=== PATIENT | male | born 1990 | race Hispanic/Latino ===

== ENCOUNTER 2017-11-17 14:37 | Observation (INO) | payer OTHER ==
[~2017-11-17] VITALS: Ht 175.3 cm; Wt 108.5 kg
[2017-11-17] MEDS ORDERED: ONDANSETRON HCL INJ 2 MG/ML VIAL IV STA (14:42)
[2017-11-17] MEDS ORDERED: MORPHINE SULFATE 4 MG/ML SYR IV STA (14:42)
[2017-11-17] MEDS ORDERED: SODIUM CHLORIDE 0.9% 1000ML 1,000 ML IV STA (14:42)
[2017-11-17 15:04] LABS: BASOPHILS # (AUTO) 0.1 (0.0-0.1); BASOPHILS % 0.4 % (0.0-1.0); EOSINOPHILS # (AUTO) 0.1 (0.0-0.4); EOSINOPHILS % 0.5 % (0.0-6.0); HEMOGLOBIN 14.2 g/dL (14.0-18.0); LYMPHOCYTES # (AUTO) 2.4 (1.0-3.2); MEAN CORPUSCULAR VOLUME 84.8 fL (81-99); MONOCYTES # (AUTO) 0.7 (0.2-0.8); MONOCYTES % 5.4 % (4.4-11.3); NEUTROPHILS % 75.4 % (38.7-80.0); PLATELET COUNT 300 x10e3/uL (140-360); RED BLOOD COUNT 5.07 x10e6/uL (4.3-5.7); RED CELL DISTRIBUTION WIDTH 13.1 % (11.7-14.4)
[2017-11-17 15:05] LABS: BILIRUBIN,URINE NEGATIVE (NEGATIVE); CLARITY,URINE CLEAR (CLEAR); COLOR,URINE YELLOW (YELLOW); KETONES,URINE NEGATIVE (NEGATIVE); LEUKOCYTE ESTERASE ,URINE TRACE (NEGATIVE); NITRITE,URINE NEGATIVE (NEGATIVE); PROTEIN,URINE DIPSTICK NEGATIVE (NEGATIVE); URINE UROBILINOGEN 0.2 mg/dL (0.2 - 1)
[2017-11-17 15:11] LABS: BACTERIA,URINE RARE /HPF; MUCUS,URINE FEW (RARE); RBC,URINE 0-5 /HPF (0-5)
[2017-11-17 15:26] LABS: ALANINE AMINOTRANSFERASE 20 IU/L (0-55); ALBUMIN 4.5 g/dL (3.5-5.0); ALKALINE PHOSPHATASE 83 IU/L (40-150); ANION GAP 12.7 mmol/L (8-16); BLOOD UREA NITROGEN 13 mg/dL (7-26); BUN/CREATININE RATIO 11 (6-25); CALCIUM 9.8 mg/dL (8.4-10.2); CARBON DIOXIDE 27 mmol/L (22-29); CHLORIDE 102 mmol/L (98-107); CREATININE, SERUM 1.19 mg/dL (0.72-1.25); EST GLOMERULAR FILTRATION RATE > 60 ML/MIN (60-); GLUCOSE 94 mg/dL (74-118); LIPASE 31 U/L (8-78); POTASSIUM 3.7 mmol/L (3.5-5.1); SODIUM 138 mmol/L (136-145)
[2017-11-17] MEDS ORDERED: MORPHINE SULFATE 2 MG/ML SYR ONE (16:20)
[2017-11-17] MEDS ORDERED: PIPER-TAZ 3.375 GM 50 ML IV ONE (16:45)
--- NOTE | 2017-11-17 16:50 | Diagnostic Imaging Report ---
PROCEDURE: CT ABDOMEN AND PELVIS WITH CONTRAST TECHNIQUE: The abdomen and pelvis were scanned utilizing a multidetector helical scanner from the diaphragm to the lesser trochanter after the IV administration of 100 cc of Isovue 370 and the oral administration of water. Coronal and sagittal multiplanar reformations were obtained. COMPARISON: None. INDICATIONS: APPENDICITIS FINDINGS: LOWER THORAX: Unremarkable HEPATOBILIARY: No focal hepatic lesions. No biliary ductal dilatation. Gallbladder is unremarkable. SPLEEN: No splenomegaly. PANCREAS: No focal masses or ductal dilatation. ADRENALS: No adrenal nodules. KIDNEYS/URETERS: No hydronephrosis, stones, or solid mass lesions. PELVIC ORGANS/BLADDER: The bladder and prostate are unremarkable. PERITONEUM / RETROPERITONEUM: No free air or fluid. LYMPH NODES: No lymphadenopathy. VESSELS: Unremarkable. GI TRACT: The appendix is dilated, measuring approximately 1.1 cm in caliber and shows marked wall enhancement. Minimal surrounding periappendiceal stranding. No foci of extraluminal air or well defined enhancing fluid collections. The rest of the bowel is unremarkable. No dilation or obstruction. BONES AND SOFT TISSUES: Unremarkable. IMPRESSION: 1. findings consistent with acute appendicitis, in the appropriate clinical setting. No perforation or abscess formation. 2. Findings discussed with Ceasar Barr in the ER November 17, 2017 at 1640 hrs. Mayo Small M.D. Dictated by: Mayo Small M.D. on 11/17/2017 at 16:50 Electronically approved by: Mayo Small M.D. on 11/17/2017 at 16:50
[2017-11-17] MEDS ORDERED: MORPHINE SULFATE 2 MG/ML SYR IV PRN (17:00)
[2017-11-17] MEDS ORDERED: ONDANSETRON HCL INJ 2 MG/ML VIAL IV PRN (17:00)
--- OUTSIDE RECORDS SUMMARY | 2017-11-17 17:51 | XMS REPORT ---
[facility] Address Unknown Phone Unavailable Care Team Providers Care Drag Out Man Name Role Phone CHEY JACOBS Unavailable Unavailable Problems This patient has no known problems. Allergies, Adverse Reactions, Alerts This patient has no known allergies or adverse reactions. Medications This patient has no known medications. 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 Coronal and sagittal multiplanar reformations were obtained. COMPARISON: None. INDICATIONS: APPENDICITIS FINDINGS: LOWER THORAX: Unremarkable HEPATOBILIARY: No focal hepatic lesions. No biliary ductal dilatation. Gallbladder is unremarkable. SPLEEN : No splenomegaly. PANCREAS: No focal masses or ductal dilatation. ADRENALS: No adrenal nodules. KIDNEYS/URETERS: No hydronephrosis, stones, or solid mass lesions. PELVIC ORGANS/BLADDER: The bladder and prostate are unremarkable. PERITONEUM / RETROPERITONEUM: No free air or fluid. LYMPH NODES: No lymphadenopathy. VESSELS: Unremarkable. GI TRACT: The appendix is dilated, measuring approximately 1.1 cm in caliber and shows marked wall enhancement. Minimal surrounding periappendiceal stranding. No foci of extraluminal air or well defined enhancing fluid collections. The rest of the bowel is unremarkable. No dilation or obstruction. BONES AND SOFT TISSUES: Unremarkable. IMPRESSION: 1. findings consistent with acute appendicitis, in the appropriate clinical setting. No perforation or abscess formation. 2. Findings discussed with Ceasar Rhodes in the ER November 17, 2017 at 1640 hrs. Dung Small M.D. Dictated by: Dung Small M.D. on 11/17/2017 at 16:50 Electronically approved by : Dung Small M.D. on 11/17/2017 at 16:50 Dictated By: DUNG SMALL MD [id number] Transcribed By: RAIN on 11/17/17 1650 COPY TO: JESSE RHODES NP
[2017-11-17] MEDS ORDERED: PIPER-TAZ 3.375 GM/50 ML BAG IV SCH (18:00)
[2017-11-17 19:00] VITALS: BP 102/63
[2017-11-17 19:05] VITALS: BP 102/63
[2017-11-17] MEDS: PIPER-TAZ 3.375 GM 50 ML IV SCH (22:10)
[2017-11-17] MEDS: D5.45%NS/KCL 20MEQ 1,000 ML IV SCH (22:12)
[2017-11-17] MEDS ORDERED: IOPAMIDOL 370 MG/ML 200 ML INFUS..BTL INJ ONE (22:25)
[2017-11-17] MEDS ORDERED: SODIUM CHLORIDE 0.9% 50ML 50 ML ONE (22:40)
[2017-11-18] VITALS: BP 94/53
[2017-11-18] MEDS: PIPER-TAZ 3.375 GM 50 ML IV SCH ×2 (00:26→06:03)
[2017-11-18] MEDS: D5.45%NS/KCL 20MEQ 1,000 ML IV SCH ×2 (03:08→08:25)
[2017-11-18 05:00] VITALS: BP 102/68
[2017-11-18 06:55] LABS: BASOPHILS % 0.5 % (0.0-1.0); EOSINOPHILS # (AUTO) 0.1 (0.0-0.4); EOSINOPHILS % 1.8 % (0.0-6.0); HEMOGLOBIN 12.9 g/dL (14.0-18.0); LYMPHOCYTES # (AUTO) 2.2 (1.0-3.2); LYMPHOCYTES % 30.3 % (18.0-39.1); MEAN CORPUSCULAR HEMOGLOBIN 28.3 pg (28-32); MEAN CORPUSCULAR HGB CONC 33.1 g/dL (31-35); MEAN CORPUSCULAR VOLUME 85.5 fL (81-99); MONOCYTES # (AUTO) 0.6 (0.2-0.8); MONOCYTES % 8.7 % (4.4-11.3); NEUTROPHILS # (AUTO) 4.3 (2.1-6.9); NEUTROPHILS % 58.4 % (38.7-80.0); PLATELET COUNT 257 x10e3/uL (140-360); RED BLOOD COUNT 4.56 x10e6/uL (4.3-5.7); RED CELL DISTRIBUTION WIDTH 13.2 % (11.7-14.4)
[2017-11-18 07:20] LABS: ANION GAP 11.9 mmol/L (8-16); BLOOD UREA NITROGEN 11 mg/dL (7-26); BUN/CREATININE RATIO 8 (6-25); CALCIUM 8.8 mg/dL (8.4-10.2); CARBON DIOXIDE 27 mmol/L (22-29); CHLORIDE 105 mmol/L (98-107); CREATININE, SERUM 1.33 mg/dL (0.72-1.25); EST GLOMERULAR FILTRATION RATE > 60 ML/MIN (60-); GLUCOSE 111 mg/dL (74-118); POTASSIUM 3.9 mmol/L (3.5-5.1); SODIUM 140 mmol/L (136-145)
[2017-11-18 07:37] VITALS: BP 110/64
[2017-11-18] MEDS ORDERED: BUPIVACAINE 0.25% 30ML SDV INJ ONE (09:29)
[2017-11-18] MEDS ORDERED: DEXTROSE 5%/LACTATED RINGERS 1,000 ML IV SCH (11:48)
[2017-11-18] MEDS ORDERED: KETOROLAC TROMETHAMINE 30 MG/ML VIAL IV PRN (12:00)
[2017-11-18] MEDS ORDERED: CEFOXITIN 1GM/ DEXTROSE 50ML 50 ML IV SCH (12:00)
[2017-11-18] MEDS ORDERED: HYDROMORPHONE 1MG/1ML INJ IV PRN (12:00)
[2017-11-18] MEDS ORDERED: HYDROCODONE/APAP 7.5MG-325MG 1 EA TAB PO PRN (12:00)
[2017-11-18] MEDS ORDERED: ACETAMINOPHEN 1000 MG/100 ML IV PRN (12:00)
[2017-11-18] MEDS ORDERED: FENTANYL CITRATE/PF 100MCG/2 ML INJ ONE ×2 (12:05→18:03)
[2017-11-18] MEDS: CEFOXITIN SOD 1 GM VIAL IV SCH ×2 (12:53→17:49)
[2017-11-18 13:00] VITALS: BP 110/64
--- NOTE | 2017-11-18 13:59 | Operative Report ---
DATE OF PROCEDURE: November 18, 2017 PREOPERATIVE DIAGNOSIS: Acute appendicitis. POSTOPERATIVE DIAGNOSIS: Acute appendicitis. OPERATION PERFORMED: Laparoscopic appendectomy. ANESTHESIA: General. COMPLICATIONS: None. ESTIMATED BLOOD LOSS: Minimal. DESCRIPTION OF PROCEDURE: With the patient lying in bed in the supine position under good general endotracheal anesthesia, the abdomen was prepped with Betadine solution and draped in the usual manner. A Veress needle was introduced into the umbilicus, and pneumoperitoneum was established without any difficulty. A 12 mm trocar was placed into the umbilicus, and a 10 mm video laparoscope was placed into the intraabdominal cavity. Under direct vision, a 5 mm trocar was placed in the suprapubic region and another 5 mm trocar was placed in the left lower abdomen. Video laparoscopy at this point revealed an acutely inflamed, non-perforated appendix. There was no fluid in the intraabdominal cavity. The base of the appendix was then dissected and divided with an application of the Endo MARQUES stapler. The mesentery of the appendix was divided with two applications of the Endo MARQUES vascular stapler, and perfect hemostasis was ascertained. The appendix was then placed in a pouch and removed through the umbilicus without any difficulty. Video laparoscopy was then again carried out. The surgical site was found to be perfectly dry. The area was then irrigated, and all the excess fluid was aspirated. The pneumoperitoneum was evacuated, and all the trocars were removed under direct vision. The midline fascia at the umbilicus was then closed with a [id number] of 0 Vicryl. All layers were infiltrated on the way out with solution of 1/4 percent Marcaine. Subcutaneous tissue was approximated with 3-0 Vicryl, and the skin was closed with subcuticular 5-0 Vicryl. Benzoin, Steri-Strips and Band-Aids were applied. The sponge, lap and needle count was correct. The patient tolerated the procedure well and returned to the recovery room in stable condition. Job#: [id number]
[2017-11-18] MEDS ORDERED: NEOSTIGMINE 5 MG/5ML SYR ONE (14:40)
[2017-11-18] MEDS ORDERED: ONDANSETRON HCL INJ 2 MG/ML VIAL ONE (14:40)
[2017-11-18] MEDS ORDERED: PROPOFOL IV EMULSION 10 MG/ML 20 ML VIAL ONE (14:40)
[2017-11-18] MEDS ORDERED: ROCURONIUM BROMIDE 10 MG/ML 5ML VIAL ONE (14:40)
[2017-11-18] MEDS ORDERED: LIDOCAINE HCL 2% LOCAL INJ 5 ML SDV VIAL INJ ONE (14:40)
[2017-11-18] MEDS ORDERED: SEVOFLURANE INHAL SOLN 250 ML PEN BTL ONE (14:40)
[2017-11-18] MEDS ORDERED: KETOROLAC TROMETHAMINE 30 MG/ML VIAL ONE (14:40)
[2017-11-18] MEDS ORDERED: GLYCOPYRROLATE INJ 1MG/ 5 ML SYR ONE (14:40)
[2017-11-18] MEDS ORDERED: DEXAMETHASONE SOD PHOS INJ 4 MG/ML VIAL ONE (14:40)
[2017-11-18 15:40] VITALS: BP 107/54
[2017-11-18] MEDS ORDERED: CEFOXITIN SOD 1 GM VIAL IV SCH (18:00)
[2017-11-18] MEDS ORDERED: MIDAZOLAM HCL 2 MG/2 ML VIAL ONE (18:03)
[2017-11-18] MEDS ORDERED: NORCO 7.5-3251 EACH PO (18:51)
[2017-11-18] MEDS ORDERED: LEVAQUIN500 MG PO (18:52)
== END 2017-11-18 19:50 | disposition home or self-care (01) ==
LOC: ER 14:37 → IMCU 17:47
PROVIDERS: ADMIT Surgery; ATTEND Surgery
DX: K35.80 Unspecified acute appendicitis (principal)
CPT/HCPCS: 36415 ×2; 44970; 74177; 80048; 80053; 81001; 83690; 85025 ×2; 87086; 88304; 99284; C1766; G0378 ×2; J0694; J1100; J1885; J2001; J2250; J2270; J2405 ×2; J2543 ×2; J7030; J7120; Q9967